=== PATIENT | female | born 1995 | race Caucasian/White ===

== ENCOUNTER 2020-09-26 17:39 | Emergency (ER) | payer BC ==
[~2020-09-26] VITALS: Ht 160 cm; Wt 129.3 kg
[~2020-09-26 17:39] MED LIST: ACEBUTCAFT PO; AMOX50SU PO; FAMO20 PO; HYDR1TAB94 PO; Naprosyn500 MG PO; OMEPRAZOLE; ONDA4ODT MM
== END 2020-09-26 20:41 | disposition home or self-care (01) ==
LOC: ER 17:39
DX: U07.1 COVID-19 (principal); Z91.018 Allergy to other foods; Z79.899 Other long term (current) drug therapy
CPT/HCPCS: 99284

== ENCOUNTER → 2021-01-27 | Outpatient (CLI) | payer BC | END | disposition home or self-care (01) | LOC: LAB 16:36 → LAB SHORT 16:36 | DX: L05.91 Pilonidal cyst without abscess (principal) | CPT/HCPCS: 87070; 87205 ==

== ENCOUNTER → 2022-04-17 | Outpatient (CLI) | payer BC | END | disposition home or self-care (01) | LOC: LAB SHORT 17:07 | DX: N92.0 Excessive and frequent menstruation with regular cycle (principal) | CPT/HCPCS: 83036 ==

== ENCOUNTER 2023-02-18 07:39 | Emergency (ER) | payer BC ==
[~2023-02-18] VITALS: Ht 160 cm; Wt 128.4 kg
[2023-02-18] MEDS ORDERED: METFORMIN HCL500 M3 PO (08:09)
[2023-02-18 10:02] LABS: BASOPHILS ABSOLUTE AUTO 0.08 K/mm3 (0.00-0.23); BASOPHILS PERCENT AUTO 1 % (0-2); EOSINOPHILS ABSOLUTE AUTO 0.07 K/mm3 (0.00-0.68); EOSINOPHILS PERCENT AUTO 1 % (0-6); Hematocrit 41.1 % (33.0-51.0); Hemoglobin 12.1 g/dL (11.5-16.0); IMMATURE GRAN ABSOLUTE AUTO 0.03 K/mm3 (0.00-0.10); IMMATURE GRAN PERCENT AUTO 0 % (0-1); LYMPHOCYTES ABSOLUTE AUTO 2.92 K/mm3 (0.84-5.20); LYMPHOCYTES PERCENT AUTO 34 % (21-46); MONOCYTES ABSOLUTE AUTO 0.55 K/mm3 (0.16-1.47); MONOCYTES PERCENT AUTO 6 % (4-13); Mean Corpuscular HGB Conc 29.4 g/dL (31.5-36.5); Mean Corpuscular Volume 75 fL (80-100); Mean Platelet Volume 9.8 fL (9.1-12.4); NEUTROPHILS ABSOLUTE AUTO 5.03 K/mm3 (1.96-9.15); NEUTROPHILS PERCENT AUTO 58 % (41-73); Platelet Count 359 K/mm3 (150-400); RDW Coefficient Variation 19.9 % (11.7-14.2); RDW Standard Deviation 52.9 fL (35.1-46.3); Red Blood Cell Count 5.49 M/mm3 (3.80-5.20); White Blood Cell Count 8.68 K/mm3 (4.00-11.30)
[2023-02-18 10:34] LABS: Albumin, Blood 3.7 g/dL (3.4-5.0); Albumin/Globulin Ratio 0.9 (0.8-1.8); Bilirubin, Total 0.6 mg/dL (0.1-1.0); Bun/Creatinine Ratio 10.3 (12.0-20.0); Calcium, Blood 9.5 mg/dL (8.5-10.1); Creatinine, Blood 0.78 mg/dL (0.40-1.00); Globulin, Blood 4.1 g/dL (2.2-4.0); Potassium, Blood 4.1 mmol/L (3.5-5.5); Total Protein, Blood 7.8 g/dL (6.4-8.2)
[2023-02-18 16:38] VITALS: BP 147/84
== END 2023-02-18 17:00 | disposition short-term general hospital (02) ==
LOC: ER 07:39
PROVIDERS: Physician Assistant
DX: E23.6 Other disorders of pituitary gland (principal); Z91.02 Food additives allergy status; Z79.84 Long term (current) use of oral hypoglycemic drugs
CPT/HCPCS: 70450; 70553; 80053; 81000; 82947; 84703; 85025; 99285-25; A9270; A9579

== ENCOUNTER 2023-04-30 18:38 | Emergency (ER) | payer BC ==
[~2023-04-30] VITALS: Ht 160 cm; Wt 131.5 kg
[~2023-04-30 18:38] MED LIST changes: +METFORMIN HCL500 M3 PO
[2023-04-30 19:36] LABS: BASOPHILS ABSOLUTE AUTO 0.08 K/mm3 (0.00-0.23); BASOPHILS PERCENT AUTO 1 % (0-2); EOSINOPHILS ABSOLUTE AUTO 0.11 K/mm3 (0.00-0.68); EOSINOPHILS PERCENT AUTO 1 % (0-6); Hematocrit 45.7 % (33.0-51.0); Hemoglobin 14.6 g/dL (11.5-16.0); IMMATURE GRAN ABSOLUTE AUTO 0.03 K/mm3 (0.00-0.10); IMMATURE GRAN PERCENT AUTO 0 % (0-1); LYMPHOCYTES ABSOLUTE AUTO 2.99 K/mm3 (0.84-5.20); LYMPHOCYTES PERCENT AUTO 37 % (21-46); MONOCYTES ABSOLUTE AUTO 0.68 K/mm3 (0.16-1.47); MONOCYTES PERCENT AUTO 8 % (4-13); Mean Corpuscular HGB 26.2 pg (26.0-34.0); Mean Corpuscular HGB Conc 31.9 g/dL (31.5-36.5); Mean Corpuscular Volume 82 fL (80-100); Mean Platelet Volume 9.8 fL (9.1-12.4); NEUTROPHILS ABSOLUTE AUTO 4.24 K/mm3 (1.96-9.15); NEUTROPHILS PERCENT AUTO 52 % (41-73); Platelet Count 287 K/mm3 (150-400); RDW Coefficient Variation 21.2 % (11.7-14.2); RDW Standard Deviation 61.6 fL (35.1-46.3); Red Blood Cell Count 5.57 M/mm3 (3.80-5.20); White Blood Cell Count 8.13 K/mm3 (4.00-11.30)
[2023-04-30 19:55] LABS: Albumin, Blood 3.6 g/dL (3.4-5.0); Albumin/Globulin Ratio 0.9 (0.8-1.8); Bilirubin, Total 0.6 mg/dL (0.1-1.0); Bun/Creatinine Ratio 11.8 (12.0-20.0); Calcium, Blood 9.3 mg/dL (8.5-10.1); Creatinine, Blood 0.77 mg/dL (0.40-1.00); Globulin, Blood 3.8 g/dL (2.2-4.0); Potassium, Blood 3.8 mmol/L (3.5-5.5); Total Protein, Blood 7.4 g/dL (6.4-8.2)
[2023-04-30] MEDS ORDERED: Ketorolac Tromethamine 15mg Vial IV ONE (22:15)
[2023-04-30] MEDS ORDERED: DiphenhydrAMINE HCl 50 MG/ML 1ML Vial IV ONE (22:20)
[2023-04-30] MEDS ORDERED: Prochlorperazine Edisylate 10 mg Vial IV ONE (22:20)
[2023-04-30 23:00] VITALS: BP 145/94
== END 2023-04-30 23:02 | disposition home or self-care (01) ==
LOC: ER 18:38
PROVIDERS: Student in an Organized Health Care Education/Training Program
DX: G43.909 Migraine, unspecified, not intractable, without status migrainosus (principal); Z91.018 Allergy to other foods; Z79.84 Long term (current) use of oral hypoglycemic drugs; Z86.03 Personal history of neoplasm of uncertain behavior
CPT/HCPCS: 70450; 80053; 85025; 96374; 96375; 99284-25; J0780; J1200; J1885

== ENCOUNTER → 2023-05-07 | Outpatient (CLI) | payer BC | LOC: LAB 17:25 → LAB SHORT 17:25 | DX: R73.03 Prediabetes (principal) | CPT/HCPCS: 83036 ==